=== PATIENT | male | born 1995 | race Caucasian/White ===

== ENCOUNTER → 2024-12-29 | Day surgery (SDC) | payer MEDICARE ==
[2024-12-22 14:43] LABS: BASOPHILS % 0.4 % (0.0-1.0); EOSINOPHILS % 5.7 % (0.0-6.0); LYMPHOCYTES % 35.0 % (18.0-39.1); MONOCYTES % 8.5 % (4.4-11.3); NEUTROPHILS % 50.0 % (38.7-80.0); RED CELL DISTRIBUTION WIDTH 12.0 % (11.7-14.4)
[2024-12-22 15:16] LABS: EST GLOMERULAR FILTRATION RATE 123.0 ML/MIN (>=60)
[~2024-12-29] MED LIST: ADDERALL XR 2020 MG PO; FENTANYL CITRATE/PF 100MCG/2 ML INJ ONE; HYDROMORPHONE 2MG/ML ONE; LACTATED RINGER'S 1,000 ML ONE; LEVOTHYROXINE50 MCG PO; LIPITOR10 MG PO; MIDAZOLAM HCL 2 MG/2 ML VIAL ONE; ONDANSETRON HCL INJ 2MG/ML 2ML 2 MG/ML VIAL ONE; PROPOFOL IV EMULSION 10 MG/ML 20 ML VIAL ONE; ROCURONIUM BROMIDE 1 ML IV ONE; ZESTRIL2.5 MG PO
[2024-12-29 14:10] VITALS: TEMP 97.6
[2024-12-29 15:15] VITALS: BP 126/88; PULSE 70; RESP 18; O2SAT 98
[2024-12-29] MEDS: ONDANSETRON HCL INJ 2MG/ML 2ML 2 MG/ML VIAL IV ONE (15:35)
== END | disposition home or self-care (01) ==
LOC: OR 08:25
PROVIDERS: ATTEND Surgery
DX: K40.30 Unilateral inguinal hernia, with obstruction, without gangrene, not specified as recurrent (principal); I10 Essential (primary) hypertension; E78.5 Hyperlipidemia, unspecified; E03.9 Hypothyroidism, unspecified; Z01.810 Encounter for preprocedural cardiovascular examination; Z01.812 Encounter for preprocedural laboratory examination; Z79.899 Other long term (current) drug therapy
CPT/HCPCS: 36415; 49507; 80048; 85025; 88302; 88307; 93005; C1781; J1171; J2250; J2405; J2704; J3010; J7121; 88304